=== PATIENT | male | born 1940 | race Caucasian/White ===

== ENCOUNTER 2017-08-06 16:24 | Outpatient (CLI) | payer MEDICARE | END 2017-08-06 16:25 | disposition home or self-care (01) | LOC: BICRAD 16:24 | PROVIDERS: ATTEND Internal Medicine Rheumatology | DX: M25.551 Pain in right hip (principal); M25.552 Pain in left hip; M54.5 Low back pain; M47.896 Other spondylosis, lumbar region; M41.125 Adolescent idiopathic scoliosis, thoracolumbar region; K80.20 Calculus of gallbladder without cholecystitis without obstruction; I70.0 Atherosclerosis of aorta | CPT/HCPCS: 72100; 72170 ==